=== PATIENT | male | born 1975 | race Caucasian/White ===

== ENCOUNTER → 2020-03-07 | Outpatient (CLI) | payer BC ==
--- NOTE | 2020-03-07 09:49 | Diagnostic Imaging Report ---
PROCEDURE: US Gallbladder. TECHNIQUE: Multiple real-time grayscale images were obtained over the right upper quadrant in various projections. INDICATION: Right upper quadrant pain. FINDINGS: There is increased echogenicity of the liver compatible with fatty infiltration. There is hepatomegaly. There is no biliary duct dilatation. Common bile duct measures 5 mm. There is no cholelithiasis, gallbladder wall thickening or pericholecystic fluid. Pancreas is obscured by bowel gas. The abdominal aorta is nonaneurysmal. IVC is patent. The right kidney is normal. There is no ascites. IMPRESSION: Hepatomegaly and fatty infiltration of the liver, otherwise unremarkable right upper quadrant ultrasound. Dictated by: Dictated on workstation # [id number]
== END ==
LOC: RAD 09:00
PROVIDERS: ATTEND Family Medicine
DX: R16.0 Hepatomegaly, not elsewhere classified (principal)
CPT/HCPCS: 76705

== ENCOUNTER → 2022-08-22 | Outpatient (CLI) | payer OTHER ==
[~2022-08-22] MED LIST: BARIUM for suspension 96% w/w (Vanilla Silq Medium Density) PO ONE; BARIUM for suspension 98% w/w (Vanilla Silq High Density) PO ONE
--- NOTE | 2022-08-22 11:41 | Diagnostic Imaging Report ---
INDICATION: Lap band surgery 13 years ago. Patient complains of reflux. Patient ingested effervescent crystals as well as thin and thick barium and imaging of the esophagus was performed in multiple obliquities. A preliminary radiograph of the chest is unremarkable. Orientation of the lap band appears to be appropriate. Esophagus has a smooth contour. Contrast is seen passing freely through the lap band into the stomach. No obstruction is identified. No hiatal hernia or significant gastroesophageal reflux was demonstrated. No esophageal mass is identified. IMPRESSION: Status post lap band surgery. No complicating features are detected. Dictated by: Dictated on workstation # [id number]
== END ==
LOC: RAD 08:48
PROVIDERS: ATTEND Surgery
DX: R13.10 Dysphagia, unspecified (principal); Z98.890 Other specified postprocedural states
CPT/HCPCS: 74220

== ENCOUNTER 2022-09-04 05:37 | Outpatient (CLI) | payer OTHER ==
[~2022-09-04] VITALS: Ht 177.8 cm; Wt 139.3 kg
[2022-09-06] MEDS ORDERED: OMEP20CA18 PO (12:03)
[2022-09-06] MEDS ORDERED: LOSA50TA63 PO (12:03)
[2022-09-06] MEDS ORDERED: SERT-413 PO (12:03)
[2022-09-06] MEDS ORDERED: ATEN50TA PO (12:03)
[2022-09-06] MEDS ORDERED: ALPR0.5T7 PO (12:03)
[2022-09-06] MEDS ORDERED: HYDR12.56 PO (12:03)
== END 2022-09-06 12:07 | disposition home or self-care (01) ==
LOC: PREOP 05:37
PROVIDERS: ATTEND Surgery
DX: Z01.818 Encounter for other preprocedural examination (principal)

== ENCOUNTER → 2022-09-05 | Outpatient (CLI) | payer OTHER ==
[~2022-09-05] MED LIST changes: +ALPR0.5T7 PO; +ATEN50TA PO; -BARIUM for suspension 96% w/w (Vanilla Silq Medium Density) PO ONE; -BARIUM for suspension 98% w/w (Vanilla Silq High Density) PO ONE; +HYDR12.56 PO; +LOSA50TA63 PO; +OMEP20CA18 PO; +SERT-413 PO
--- NOTE | 2022-09-05 16:45 | Diagnostic Imaging Report ---
EXAMINATION: Lumbar spine radiographs, 3 views. COMPARISON: None. HISTORY: 46-year-old male, low back pain. FINDINGS: The alignment of the lumbar spine is unremarkable. There is no identified compression deformity or fracture. There are mild endplate degenerative related changes at L1-L2, L2-L3, L3-L4, and L4-L5. The disc heights are fairly well preserved. The facet joints are grossly unremarkable. Unremarkable appearance of the sacroiliac joints. IMPRESSION: Multilevel mild disc degenerative changes of the lumbar spine. Dictated by: Dictated on workstation # [id number]
== END ==
LOC: RAD 10:56
PROVIDERS: ATTEND Family Medicine
DX: M51.36 Other intervertebral disc degeneration, lumbar region (principal)
CPT/HCPCS: 72100

== ENCOUNTER 2022-09-16 08:44 | Day surgery (SDC) | payer OTHER ==
[~2022-09-16] VITALS: Ht 177.8 cm; Wt 139.3 kg
[2022-09-16] MEDS ORDERED: LACTATED RINGERS 1,000 ML IV STA (08:58)
[2022-09-16] MEDS ORDERED: HURRICAINE EXT TUBE (BENZOCAINE) XX PRN (09:00)
[2022-09-16 09:29] VITALS: BP 160/74
[2022-09-16] MEDS ORDERED: MIDAZOLAM 2 MG/2 ML (VERSED) VIAL ONE (10:06)
[2022-09-16] MEDS ORDERED: PROPOFOL INJECTION 50 ML IV ONE ×2 (10:06→10:19)
[2022-09-16 10:35] VITALS: BP 120/63
--- NOTE | 2022-09-16 10:38 | Progress Note-Post Operative ---
Post-Operative Progess Note Surgeon (s)/Commercial Real Estate Manager (s) Surgeon VELIA ARAYA DO Commercial Real Estate Manager: CLEMENTE Huitron Student Pre-Operative Diagnosis GERD, Screening Colonoscopy Post-Operative Diagnosis Gastritis Hiatal hernia internal hemorrhoids Procedure & Operative Findings Date of Procedure 09/16/22 Procedure Performed/Findings EGD with biopsy Colonoscopy PROCEDURE NOTE: After informed consent was obtained, the patient was brought to the endoscopy suite, placed in bed in left lateral decubitus position. He was administered IV sedation by the SLEEPING CAR PORTER who then monitored vitals the entire time, heart rate, blood pressure and pulse ox and the scope was inserted down the mouth through the esophagus into the stomach. On the way down, noted some mild esophagitis, took a picture, pushed into the stomach, pushed past the antrum into the duodenum. Duodenum looked good. Pulled back and did a biopsy of antrum, then retroflexed the scope, saw small hiatal hernia, took a picture of this and then pulled the scope into the GE junction, took another picture of the hiatal hernia and then did a biopsy of the GE junction. Pushed the scope back into the stomach, suctioned all the air out of the stomach. I thought I could see the shape of his Lap Band, did not see any erosion or complication. There may have been some stomach above the Lap Band. At this point pulled the scope up the esophagus and out the mouth. Switched camera, switched gloves, went down below and started the colonoscopy. Pushed all the way to about 150 cm and pushed into the cecum, took a picture of appendiceal orifice and noted the ileocecal valve. Then slowly withdrew the scope insufflating to look circumferentially at the abarca starting in the cecum, up the ascending colon to the hepatic flexure, then down the transverse colon, splenic flexure, into the descending colon down in the sigmoid and then into the rectal vault and retroflexed the scope. Took picture of the internal hemorrhoids. The patient tolerated the procedure and he recovered in the endoscopy suite. Recommended for repeat colonoscopy in 10 years Anesthesia Type IV sedation by SLEEPING CAR PORTER Estimated Blood Loss Estimated blood loss (mL): scant Specimens/Packing Specimens Removed antral bx GE jxn bx VELIA ARAYA DO Sep 16, 2022 10:38
--- NOTE | 2022-09-16 10:39 | Endoscopy Discharge Instruct ---
Endo Procedure/Findings Findings 1.: Gastritis 2.: Hiatal Hernia 3.: Internal Hemorrhoids Discharge Instructions - Activity: You might feel a little sleepy until tomorrow. This is due to the medicine you received to relax you. Until tomorrow, you should: NOT drive a car, operate machinery or power tools. NOT drink any alcoholic beverages. NOT make any important decisions or sign importortant papers. Do not return to work until tomorrow, unless otherwise instructed. Resume previous activities tomorrow. Diet: Start by taking liquids. If you tolerate liquids, advance to solid food. 1.: EGD in 3 years 2.: Colonscopy in 10 years Notify Physician - If you experience excessive bleeding, unusual abdominal pain, fever, or chest pain, contact your doctor immediately. Follow-Up: Other Follow up in my office in one week VELIA ARAYA DO Sep 16, 2022 10:39
[2022-09-16 10:40] VITALS: BP 121/68
[2022-09-16 10:45] VITALS: BP 112/59
[2022-09-16 12:40] VITALS: BP 112/59
--- NOTE | 2022-09-16 13:07 | Anesthesia-General Post-Op ---
MAC Patient Condition Mental Status/LOC: Same as Preop Cardiovascular: Satisfactory Nausea/Vomiting: Absent Respiratory: Satisfactory Pain: Controlled Complications: Absent Post Op Complications Complications None Follow Up Care/Instructions Patient Instructions None needed. Anesthesiology Discharge Order Discharge Order Patient is doing well, no complaints, stable vital signs, no apparent adverse anesthesia problems. No complications reported per nursing. SUKHI ROCHA CRNA Sep 16, 2022 13:07
== END 2022-09-16 12:40 | disposition home or self-care (01) ==
LOC: ENDO 08:44
PROVIDERS: ATTEND Surgery
DX: Z12.11 Encounter for screening for malignant neoplasm of colon (principal); K29.70 Gastritis, unspecified, without bleeding; K44.9 Diaphragmatic hernia without obstruction or gangrene; K64.8 Other hemorrhoids; K21.00 Gastro-esophageal reflux disease with esophagitis, without bleeding; E66.9 Obesity, unspecified; Z68.41 Body mass index [BMI] 40.0-44.9, adult